=== PATIENT | male | born 1975 | race African-American/Black ===

== ENCOUNTER 2022-07-26 04:21 | Emergency (ER) | payer OTHER, MEDICAID ==
[~2022-07-26] VITALS: Ht 170.2 cm; Wt 82.0 kg
[2022-07-26 06:00] VITALS: BP 152/90
[2022-07-26] MEDS ORDERED: ACETAMINOPHEN WITH CODEINE 300/30MG TABLET PO ONE (06:00)
[2022-07-26] MEDS ORDERED: TOPUD PO (06:24)
== END 2022-07-26 07:45 | disposition home or self-care (01) ==
LOC: ER 04:21
DX: M54.50 Low back pain, unspecified (principal); E11.40 Type 2 diabetes mellitus with diabetic neuropathy, unspecified; I10 Essential (primary) hypertension
CPT/HCPCS: 72100; 99283